=== PATIENT | male | born 1990 | race Caucasian/White ===

== ENCOUNTER 2021-01-19 20:51 | Inpatient (IN) | payer OTHER ==
[~2021-01-19] VITALS: Ht 172 cm; Wt 112.0 kg
[2021-01-19] MEDS ORDERED: LACTATED RINGERS 1,000 ML IV STA (21:39)
[2021-01-19 21:45] LABS: BASOPHILS % (AUTO) 0 % (0-10); EOSINOPHILS % (AUTO) 0 % (0-10); HEMATOCRIT 42 % (40-54); LYMPHOCYTES # (AUTO) 1.4 10^3/uL (1.0-4.0); LYMPHOCYTES % (AUTO) 19 % (12-44); MEAN CORPUSCULAR HEMOGLOBIN 29 pg (25-34); MEAN CORPUSCULAR HGB CONC 33 g/dL (32-36); MEAN CORPUSCULAR VOLUME 88 fL (80-99); MEAN PLATELET VOLUME 9.4 fL (9.0-12.2); MONOCYTES # (AUTO) 0.7 10^3/uL (0.0-1.0); MONOCYTES % (AUTO) 9 % (0-12); NEUTROPHILS # (AUTO) 5.4 10^3/uL (1.8-7.8); NEUTROPHILS % (AUTO) 72 % (42-75); PLATELET COUNT 269 10^3/uL (130-400); WHITE BLOOD COUNT 7.5 10^3/uL (4.3-11.0)
[2021-01-19 21:56] LABS: ALBUMIN 4.3 GM/DL (3.2-4.5); POTASSIUM 3.9 MMOL/L (3.6-5.0)
[2021-01-19 21:57] LABS: CALCIUM 8.7 MG/DL (8.5-10.1)
[2021-01-19 21:58] LABS: TOTAL PROTEIN 7.9 GM/DL (6.4-8.2)
[2021-01-19 22:00] LABS: BILIRUBIN,TOTAL 0.4 MG/DL (0.1-1.0); FIBRIN DEGRADATION PRODUCTS 0.44 UG/ML (0.00-0.49); INR 0.9 (0.8-1.4); PROTHROMBIN TIME PATIENT 12.6 SEC (12.2-14.7)
[2021-01-19 22:02] LABS: CREATININE SERUM 0.97 MG/DL (0.60-1.30)
--- NOTE | 2021-01-19 23:16 | ED General ---
General Chief Complaint: Cough/Cold/Flu Symptoms Stated Complaint: COUGH, SOB, FEVER Nursing Triage Note: Pt reports cough, SOA starting on 01/08. Pt had known COVID exposure at work. Pt reports worsening symptoms. Pt reports difficulty performing daiy tasks, states O2 drops into the 60s when up and around. Source of Information: Patient Exam Limitations: No Limitations History of Present Illness Date Seen by Provider: Jan 19, 2021 Time Seen by Provider: 21:29 Initial Comments Here with report of onset of symptoms on 01/08/2021. Covid positive this evening. Has had fever, chills, body aches and now with increasing shortness of breath. O2 saturations apparently dropped into the 60s when up and around. Arrives with O2 sat at 90% while resting. Denies nausea or vomiting but has had some diarrhea. Otherwise healthy. Did chew tobacco until the current illness but has stopped that now. Follows with Dr. Malcolm. She did see him and initiate albuterol and did give a dose of steroid. Timing/Duration: Getting Worse, Other (11 days) Severity: Moderate Associated Systoms: Cough, Fever/Chills, Loss of Appetite, Shortness of Air, We akness Allergies and Home Medications Allergies Coded Allergies: No Known Drug Allergies (Unverified , 01/19/21) Patient Home Medication List Home Medication List Reviewed: Yes Review of Systems Review of Systems Constitutional: see HPI EENTM: nose congestion; No throat pain Respiratory: cough, short of breath, wheezing Cardiovascular: no symptoms reported Gastrointestinal: see HPI; No nausea, No vomiting Genitourinary: no symptoms reported Musculoskeletal: see HPI All Other Systems Reviewed Negative Unless Noted: Yes Past Znxosyf-Bosagi-Wwqqzi Hx Patient Social History Tobacco Use?: No Use of E-Cig and/or Vaping dev: No Substance use?: No Alcohol Use?: Yes Alcohol Frequency: Once in a while Past Medical History Surgery/Hospitalization HX: NO PMH Surgeries: No Respiratory: No Cardiac: No Neurological: No Genitourinary: No Gastrointestinal: No Musculoskeletal: No Family Medical History Reviewed Nursing Family Hx Physical Exam-Suspected Sepsis Physical Exam Vital Signs Vital Signs - First Documented 01/19/21 21:14 Temp 37.8 Pulse 111 Resp 22 B/P (MAP) 133/86 (102) Pulse Ox 91 O2 Delivery Room Air Capillary Refill : Less Than 3 Seconds Blood Pressure Mean: 102 Height, Weight, BMI Height: '" Weight: lbs. oz. kg; 37.00 BMI Method: General Appearance: No Apparent Distress, WD/WN HEENT: PERRL/EOMI, Pharynx Normal Neck: Non Tender, Supple Respiratory: Crackles (Bilateral bases), Wheezing (Scattered with coarse cough) Cardiovascular: No Murmur, Tachycardia Gastrointestinal: Non Tender, Soft Back: Normal Inspection, No CVA Tenderness, No Vertebral Tenderness Extremity: Normal Range of Motion, Non Tender Neurologic/Psychiatric: Alert, Oriented x3 Skin: normal color, warm/dry Focused Exam Lactate Level 01/19/21 21:32: Lactic Acid Level 1.68 Lactic Acid Level Laboratory Tests Test 01/19/21 21:32 Lactic Acid Level 1.68 MMOL/L (0.50-2.00) Progress/Results/Core Measures Suspected Sepsis SIRS Temperature: Pulse: 111 Respiratory Rate: 22 Laboratory Tests 01/19/21 21:32: White Blood Count 7.5 Blood Pressure 133 /86 Mean: 102 01/19/21 21:32: Lactic Acid Level 1.68 Laboratory Tests 01/19/21 21:32: Creatinine 0.97, INR Comment 0.9, Platelet Count 269, Total Bilirubin 0.4 Results/Orders Lab Results Laboratory Tests Test 01/19/21 21:30 01/19/21 21:32 Range/Units SARS-CoV-2 RNA (RT-PCR) Detected H Not Detecte White Blood Count 7.5 4.3-11.0 10^3/uL Red Blood Count 4.78 4.30-5.52 10^6/uL Hemoglobin 14.0 13.3-17.7 g/dL Hematocrit 42 40-54 % Mean Corpuscular Volume 88 80-99 fL Mean Corpuscular Hemoglobin 29 25-34 pg Mean Corpuscular Hemoglobin Concent 33 32-36 g/dL Red Cell Distribution Width 13.0 10.0-14.5 % Platelet Count 269 130-400 10^3/uL Mean Platelet Volume 9.4 9.0-12.2 fL Immature Granulocyte % (Auto) 1 % Neutrophils (%) (Auto) 72 42-75 % Lymphocytes (%) (Auto) 19 12-44 % Monocytes (%) (Auto) 9 0-12 % Eosinophils (%) (Auto) 0 0-10 % Basophils (%) (Auto) 0 0-10 % Neutrophils # (Auto) 5.4 1.8-7.8 10^3/uL Lymphocytes # (Auto) 1.4 1.0-4.0 10^3/uL Monocytes # (Auto) 0.7 0.0-1.0 10^3/uL Eosinophils # (Auto) 0.0 0.0-0.3 10^3/uL Basophils # (Auto) 0.0 0.0-0.1 10^3/uL Immature Granulocyte # (Auto) 0.0 0.0-0.1 10^3/uL Prothrombin Time 12.6 12.2-14.7 SEC INR Comment 0.9 0.8-1.4 Activated Partial Thromboplast Time 30 24-35 SEC D-Dimer 0.44 0.00-0.49 UG/ML Sodium Level 140 135-145 MMOL/L Potassium Level 3.9 3.6-5.0 MMOL/L Chloride Level 101 98-107 MMOL/L Carbon Dioxide Level 24 21-32 MMOL/L Anion Gap 15 H 5-14 MMOL/L Blood Urea Nitrogen 13 7-18 MG/DL Creatinine 0.97 0.60-1.30 MG/DL Estimat Glomerular Filtration Rate 91 BUN/Creatinine Ratio 13 Glucose Level 110 H 70-105 MG/DL Lactic Acid Level 1.68 0.50-2.00 MMOL/L Calcium Level 8.7 8.5-10.1 MG/DL Corrected Calcium 8.5 8.5-10.1 MG/DL Total Bilirubin 0.4 0.1-1.0 MG/DL Aspartate Amino Transf (AST/SGOT) 45 H 5-34 U/L Alanine Aminotransferase (ALT/SGPT) 48 0-55 U/L Alkaline Phosphatase 66 40-136 U/L C-Reactive Protein High Sensitivity 2.57 H 0.00-0.50 MG/DL Total Protein 7.9 6.4-8.2 GM/DL Albumin 4.3 3.2-4.5 GM/DL Procalcitonin 0.04 <0.10 NG/ML My Orders Orders - PARISH BROWN MD Cbc With Automated Diff (01/19/21 21:29) Comprehensive Metabolic Panel (01/19/21 21:29) Blood Culture (01/19/21 21:29) Sputum Culture (01/19/21 21:29) Urinalysis (01/19/21 21:29) Urine Culture (01/19/21:29) Protime With Inr (01/19/21:) Partial Thromboplastin Time (01/19/21 21:29) Chest 1 View, Ap/Pa Only (01/19/21 21:29) Ed Iv/Invasive Line Start (01/19/21 21:29) Vital Signs Adult Sepsis Patie Q15M (01/19/21 21:29) O2 (01/19/21 21:29) Remove Rings In Anticipation O (01/19/21 21:) Lactic Acid Analyzer (01/19/21:) Fibrin Degradation Products (01/19/21:) Procalcitonin (Pct) (01/19/21:) Hs C Reactive Protein (01/19/21:) Lactated Ringers (Lr 1000 Ml Iv Solution (01/19/21 21:39) Dexamethasone Injection (Decadron Inje (01/19/21 21:45) Medications Given in ED Current Medications Medications Dose Ordered Sig/Ambrosio Route Start Time Stop Time Status Last Admin Dose Admin Dexamethasone Sodium Phosphate 6 mg ONCE ONCE IV 01/19/21 21:45 01/19/21 21:46 DC 01/19/21 21:43 6 MG Vital Signs/I&O 01/19/21 21:14 Temp 37.8 Pulse 111 Resp 22 B/P (MAP) 133/86 (102) Pulse Ox 91 O2 Delivery Room Air Capillary Refill : Less Than 3 Seconds Blood Pressure Mean: 102 Progress Note : Progress Note Seen and evaluated. IV, labs, blood cultures and lactic acid ordered. COVID-19 test ordered and is positive. LR 1 L bolus ordered. Decadron 6 mg IV due to diarrhea. Patient placed on O2 at 2 L to keep sats above 92% and currently is 93%. We did have him do 4 puffs of his inhaler via spacer which did not significantly improve his saturations but wheezing diminished. Monitor patient. 2233: I did discuss the case with Dr. Lane. Given his x-ray findings and requirement for O2, patient meets criteria for admission. We will initiate convalescent plasma which I will order. Findings and concerns discussed with patient and his (via telephone) and they agree to admission, inpatient status. Dr. Lane agrees to admission, inpatient status Diagnostic Imaging Diagonstic Imaging: Xray Plain Films/CT/US/NM/MRI: chest Comments Bilateral lateral and basilar infiltrates consistent with COVID-19 pneumonia Departure Communication (Admissions) Time/Spoke to Admitting Phy: 22:33 Impression Primary Impression: Pneumonia due to COVID-19 virus Additional Impression: Hypoxia Disposition: ADMITTED INPATIENT Condition: Stable Admissions Decision to Admit Reason: Admit from ER (General) Decision to Admit/Date: Jan 19, 2021 Time/Decision to Admit Time: 22:33 PARISH BROWN MD Jan 19, 2021 23:16
[2021-01-20] VITALS (7 sets, daily range): BP systolic 115–134; BP diastolic 70–79
[2021-01-20] MEDS ORDERED: guaiFENesin SYRUP 100 MG/5 ML 10 ML (ROBITUSSIN SF) PO SCH (00:15)
[2021-01-20] MEDS ORDERED: ONDANSETRON 4 MG/5 ML ORAL SOLN (ZOFRAN) 5 ML PO PRN (00:15)
[2021-01-20] MEDS ORDERED: ONDANSETRON 4 MG/2 ML (SDV) Z0FRAN IV PRN (00:15)
[2021-01-20] MEDS ORDERED: ACETAMINOPHEN 325 MG TABLET PO PRN (00:15)
[2021-01-20] MEDS ORDERED: LACTATED RINGERS 1,000 ML IV ONE (00:21)
[2021-01-20] MEDS ORDERED: guaiFENesin/DM (ROBITUSSIN DM) 10 ML UDC ONE (00:27)
[2021-01-20] MEDS: LACTATED RINGERS 1,000 ML IV SCH ×2 (00:27→20:54)
[2021-01-20] MEDS ORDERED: RT-ALBUTEROL HFA 8.5 GM INHALER IH PRN (00:30)
[2021-01-20] MEDS: ENOXAPARIN 40 MG/0.4 ML (LOVENOX) SYR SC SCH ×2 (01:55→20:54)
[2021-01-20] MEDS: RT-ALBUTEROL HFA 8.5 GM INHALER IH SCH ×4 (02:14→20:54)
[2021-01-20] MEDS ORDERED: guaiFENesin SYRUP 100 MG/5 ML 10 ML (ROBITUSSIN SF) PO PRN (04:15)
--- NOTE | 2021-01-20 06:30 | Diagnostic Imaging Report ---
INDICATION: Sepsis, Covid exposure FINDINGS: Frontal view of the chest demonstrates the heart size to be upper normal. Bilateral pulmonary infiltrates are present. There are no pleural effusions. The osseous structures appear unremarkable. IMPRESSION: Bilateral pulmonary infiltrates, left greater than right, are present. Heart size is borderline enlarged. Findings agree with Emergency Room report. Dictated by: Dictated on workstation # [id number]
[2021-01-20] MEDS ORDERED: CATHETER FLUSH 10 ML SYR IV PRN (07:30)
[2021-01-20] MEDS: dexAMETHasone 6 MG TAB (DECADRON) PO SCH (08:04)
[2021-01-20] MEDS ORDERED: DIPH25CA79 PO (13:51)
[2021-01-20] MEDS ORDERED: RT-ALBUINH INH (13:51)
[2021-01-20] MEDS ORDERED: ACET-2267 PO (13:51)
[2021-01-20] MEDS ORDERED: DEXT20TA8 PO (13:51)
[2021-01-20] MEDS ORDERED: MELA5TAB14 PO (13:51)
[2021-01-20] MEDS ORDERED: IBUP-2473 PO (13:51)
[2021-01-20] MEDS ORDERED: ACETAMINOPHEN 500 MG TAB (TYLENOL) PO PRN (14:45)
[2021-01-20] MEDS ORDERED: IBUPROFEN TABLET 200 MG TAB PO PRN (14:45)
--- NOTE | 2021-01-20 14:48 | History & Physical-Hospitalist ---
History of Present Illness HPI/Chief Complaint Pt is a 30yoCM who presented to the ER due to hypoxia. Per EMS report his sats dropped to the 60s. Source: patient Date Seen 01/20/21 Time Seen by a Provider: 14:[address] MD PCP No,Local Physician Referring Physician Date of Admission Jan 19, 2021 at 23:09 Home Medications & Allergies Home Medications Reviewed patient Home Medication Reconciliation performed by pharmacy medication reconciliations infectious waste technician and/or nursing. Patients Allergies have been reviewed. Allergies Allergies Coded Allergies No Known Drug Allergies (Unverified01/19/21) Past Rymfyae-Wqwngi-Mixtqr Hx Patient Social History Tobacco Use?: Yes Tobacco type used: Cigars Smoking Status: Light Tobacco Smoker Smokeless Tobacco Frequency: Never a User Use of E-Cig and/or Vaping dev: No Substance use?: No Alcohol Use?: Yes Alcohol Frequency: Once in a while Pt feels they are or have been: No Current Status Advance Directives: No Communicates: Verbally Primary Language: Chinese Preferred Spoken Language: Chinese Is interpretation needed?: No Sensory deficits: Vision impairment Implanted or Applied Medical D: None Family Medical History Reviewed Nursing Family Hx Physical Exam Physical Exam Vital Signs Vital Signs - First Documented 01/19/21 01/19/21 01/20/21 21:14 21:20 02:15 Temp 37.8 Pulse 111 Resp 22 B/P (MAP) 133/86 (102) Pulse Ox 91 O2 Delivery Room Air O2 Flow Rate 2.00 FiO2 96 Capillary Refill : Less Than 3 Seconds Height, Weight, BMI Height: '" Weight: lbs. oz. kg; 37.85 BMI Method: Results Results/Procedures Labs Laboratory Tests 01/19/21 21:32 Patient resulted labs reviewed. Assessment/Plan Admission Diagnosis Acute hypoxic respiratory failure due to COVID19 Admission Status: Inpatient Order (span 2 midnights) Reason for Inpatient Admission: see below Assessment and Plan Acute hypoxic respiratory failure due to COVID19 Continue on Decadron Wean oxygen to keep sats >90 Outside of the window for remdesivir Convalescent plasma ordered, discuss issues with national backorder due to nationwide surge Supportive care DVT ppx: Lovenox Diagnosis/Problems Diagnosis/Problems (1) Acute respiratory failure (2) Obesity (3) COVID-[address] MD Jan 20, 2021 14:48
--- NOTE | 2021-01-20 15:15 | Pulmonary Consultation ---
History of Present Illness History of Present Illness Date Seen by Provider: Jan 20, 2021 Time Seen by Provider: 15:11 Date of Admission Reason for Visit: CRUM, COVID PNA History of Present Illness 30 yo admitted with COVID PNA, started on January 08, did ok, until 01/16, developed SOB, CRUM, Feeling a little better at rest, still CRUM Now on 3 lpm with SpO2 95% Has mucoid cough, no blood, has lost sense of smell and taste, came back On IV Decadron, not on remdesivir-out of window PMH no DM, no HTN, no HLD, no OHD, no SOL Allergies and Home Medications Allergies Coded Allergies: No Known Drug Allergies (Unverified , 01/19/21) Home Medications Acetaminophen 500 Mg Tablet, 1,000 MG PO Q8H PRN for PAIN-MILD (1-4), (Reported) Albuterol Sulfate 1 Puff Puff, 2 PUFF INH Q4H PRN for SHORTNESS OF BREATH, (Reported) Dextroamphetamine/Amphetamine 20 Mg Tablet, 20 MG PO 0700,1200, (Reported) Diphenhydramine HCl 25 Mg Capsule, 25-50 MG PO Q8H PRN for ALLERGY SYMPTOMS, (Reported) Ibuprofen 200 Mg Tablet, 400-600 MG PO Q8H PRN for PAIN-MILD (1-4), (Reported) Melatonin 5 Mg Tablet, 5 MG PO HS PRN for SLEEP, (Reported) Past Medical/Social/Family Hx Patient Social History Tobacco Use?: Yes Tobacco type used: Cigars Smoking Status: Light Tobacco Smoker Smokeless Tobacco Frequency: Never a User Use of E-Cig and/or Vaping dev: No Substance use?: No Alcohol Use?: Yes Alcohol Frequency: Once in a while Pt stated abuse/neglect: No Immunizations Up To Date Influenza Vaccine Up-to-Date: No; Not Current Current Status Advance Directives: No Communicates: Verbally Primary Language: Burundian Preferred Spoken Language: Burundian Is interpretation needed?: No Sensory deficits: Vision impairment Implanted or Applied Medical D: None Review of Systems Constitutional: weakness Respiratory: no symptoms reported, cough, dyspnea on exertion Sepsis Event Evaluation Height, Weight, BMI Height: '" Weight: lbs. oz. kg; 37.85 BMI Method: Exam Exam Patient acknowledged, consented, and participated in this virtual visit which was conducted using real time audio/video Vital Signs Date Time Temp Pulse Resp B/P (MAP) Pulse Ox O2 Delivery O2 Flow Rate FiO2 01/20/21 14:29 Nasal Cannula 3.00 01/20/21 12:00 36.4 86 22 125/73 (90) 94 Nasal Cannula 3.00 01/20/21 08:50 Nasal Cannula 3.00 01/20/21 08:00 36.2 88 20 130/78 (95) 94 Nasal Cannula 3.00 01/20/21 07:59 Nasal Cannula 3.00 01/20/21 04:46 36.8 86 16 121/76 (91) 94 Nasal Cannula 3.00 01/20/21 02:15 Nasal Cannula 3.00 96 01/20/21 00:27 37.8 110 96 01/20/21 00:10 37.3 100 22 115/70 (85) 93 Nasal Cannula 2.00 01/20/21 00:00 93 Nasal Cannula 2.00 01/19/21 23:55 37.8 110 22 128/79 (102) 96 Nasal Cannula 2.00 01/19/21 21:20 91 Nasal Cannula 2.00 01/19/21 21:14 37.8 111 22 133/86 (102) 91 Room Air I & O 01/20/21 07:00 Intake Total 1300 ml Output Total 350 ml Balance 950 ml Height & Weight Height: '" Weight: lbs. oz. kg; 37.85 BMI Method: General Appearance: No Apparent Distress, WD/WN HEENT: PERRL/EOMI, Pharynx Normal Neck: Non Tender, Supple Respiratory: Crackles (Bilateral bases), Decreased Breath Sounds, Wheezing (Scattered with coarse cough) Cardiovascular: Regular Rate, Rhythm, No Murmur, Tachycardia Capillary Refill: Less Than 3 Seconds Gastrointestinal: normal bowel sounds, non tender, soft Extremity: Normal Range of Motion, Non Tender, No Pedal Edema Neurologic/Psychiatric: Alert, Oriented x3 Results Lab Laboratory Tests 01/19/21 21:32 Assessment/Plan Assessment/Plan Has bilateral infiltrate which combined with his obesity is dropping his SpO2, keep on same meds, If large drops at night would consider SOL Will follow D Dimer ok Time spent with patient (mins): 20 FRANCE HOLBROOK MD Jan 20, 2021 15:15
[2021-01-20] MEDS: MELATONIN 3 MG TABLET PO PRN (20:54)
[2021-01-21 00:21] VITALS: BP 122/80
[2021-01-21] MEDS: RT-ALBUTEROL HFA 8.5 GM INHALER IH SCH ×4 (01:55→21:22)
[2021-01-21 04:06] VITALS: BP 125/75
[2021-01-21 05:44] LABS: BASOPHILS % (AUTO) 0 % (0-10); EOSINOPHILS % (AUTO) 0 % (0-10); HEMATOCRIT 40 % (40-54); HEMOGLOBIN 13.4 g/dL (13.3-17.7); LYMPHOCYTES # (AUTO) 1.4 10^3/uL (1.0-4.0); LYMPHOCYTES % (AUTO) 15 % (12-44); MEAN CORPUSCULAR HEMOGLOBIN 29 pg (25-34); MEAN CORPUSCULAR HGB CONC 34 g/dL (32-36); MEAN CORPUSCULAR VOLUME 88 fL (80-99); MONOCYTES % (AUTO) 11 % (0-12); NEUTROPHILS # (AUTO) 6.6 10^3/uL (1.8-7.8); NEUTROPHILS % (AUTO) 73 % (42-75); PLATELET COUNT 314 10^3/uL (130-400)
[2021-01-21 05:55] LABS: ALBUMIN 3.9 GM/DL (3.2-4.5); POTASSIUM 4.1 MMOL/L (3.6-5.0)
[2021-01-21 05:56] LABS: CALCIUM 8.6 MG/DL (8.5-10.1)
[2021-01-21 05:57] LABS: TOTAL PROTEIN 7.2 GM/DL (6.4-8.2)
[2021-01-21 05:59] LABS: BILIRUBIN,TOTAL 0.4 MG/DL (0.1-1.0)
[2021-01-21 06:01] LABS: CREATININE SERUM 0.76 MG/DL (0.60-1.30)
[2021-01-21] MEDS ORDERED: NON-FORMULARY MEDICATION 1 EA EA (Dextroamphetamine/Amphetamine (Amphetamine Salts 20 mg T PO SCH (07:00)
[2021-01-21 07:48] VITALS: BP 116/77
[2021-01-21] MEDS: dexAMETHasone 6 MG TAB (DECADRON) PO SCH (08:54)
[2021-01-21 11:57] VITALS: BP 124/80
--- NOTE | 2021-01-21 12:42 | Pulmonary Progress Note ---
Subjective Date Seen by a Provider: Jan 21, 2021 Time Seen by a Provider: 12:39 Subjective/Events-last exam events over night: sob improved; occ cough; sob worse when walking Sepsis Event Evaluation Height, Weight, BMI Height: '" Weight: lbs. oz. kg; 37.85 BMI Method: Focused Exam Lactate Level 01/19/21 21:32: Lactic Acid Level 1.68 Exam Exam Patient acknowledged, consented, and participated in this virtual visit which was conducted using real time audio/video Vital Signs Date Time Temp Pulse Resp B/P (MAP) Pulse Ox O2 Delivery O2 Flow Rate FiO2 01/21/21 11:57 36.5 78 28 124/80 (95) 93 Nasal Cannula 3.00 01/21/21 08:41 Nasal Cannula 2.00 94 01/21/21 08:00 Nasal Cannula 2.00 01/21/21 07:48 36.2 80 24 116/77 (90) 95 Nasal Cannula 3.00 01/21/21 04:06 36.4 78 20 125/75 (92) 96 Nasal Cannula 3.00 01/21/21 01:55 Nasal Cannula 3.00 94 01/21/21 00:21 36.0 85 20 122/80 (94) 96 Nasal Cannula 3.00 01/20/21 20:45 Nasal Cannula 3.00 01/20/21 19:35 37.0 92 20 128/79 (95) 94 Nasal Cannula 3.00 01/20/21 16:07 36.3 93 20 134/72 (92) 93 Nasal Cannula 3.00 01/20/21 14:29 Nasal Cannula 3.00 I & O 01/21/21 07:00 Intake Total 2 ml Output Total 300 ml Balance 1722 ml Height & Weight Height: '" Weight: lbs. oz. kg; 37.85 BMI Method: General Appearance: No Apparent Distress, WD/WN HEENT: PERRL/EOMI, Pharynx Normal Neck: Non Tender, Supple Respiratory: Crackles (Bilateral bases), Decreased Breath Sounds, Wheezing (Scattered with coarse cough) Cardiovascular: Regular Rate, Rhythm, No Murmur, Tachycardia Capillary Refill: Less Than 3 Seconds Gastrointestinal: normal bowel sounds, non tender, soft Extremity: Normal Range of Motion, Non Tender, No Pedal Edema Neurologic/Psychiatric: Alert, Oriented x3 Results Lab Laboratory Tests 01/19/21 21:32 01/21/21 05:38 Assessment/Plan Assessment/Plan Acute hypoxmic resp failure covid pna lovenox o2 nasal canula 2l repeat cxray continue to oberve SOL may need bipap psg outpatient SONIA GAUTHIER MD Jan 21, 2021 12:42
--- NOTE | 2021-01-21 13:25 | Progress Note - Hospitalist ---
Subjective HPI/CC On Admission Date Seen by Provider: Jan 21, 2021 Time Seen by Provider: 11:15 Pt is a 30yoCM who presented to the ER due to hypoxia. Per EMS report his sats dropped to the 60s. Subjective/Events-last exam Pt reports doing ok but is surprised he isn't feeling better. We discussed the potential for long recovery and that could be weeks or months. He seemed very upset by this possibility. Reminded him that we will take it one day at a time and to give himself time with his recovery. Focused Exam Lactate Level 01/19/21 21:32: Lactic Acid Level 1.68 Objective Exam Vital Signs Vital Signs Date Time Temp Pulse Resp B/P (MAP) Pulse Ox O2 Delivery O2 Flow Rate FiO2 01/21/21 11:57 36.5 78 28 124/80 (95) 93 Nasal Cannula 3.00 01/21/21 08:41 94 Capillary Refill : Less Than 3 Seconds General Appearance: No Apparent Distress, Obese Respiratory: No Accessory Muscle Use, Crackles (in bases), Decreased Breath Sounds Cardiovascular: Regular Rate, Rhythm, No Murmur Gastrointestinal: Normal Bowel Sounds, Non Tender, Soft Neurologic/Psychiatric: Alert, Oriented x3 Results/Procedures Lab Laboratory Tests 01/21/21 05:38 Patient resulted labs reviewed. Assessment/Plan Assessment and Plan Assess & Plan/Chief Complaint Acute hypoxic respiratory failure due to COVID19 Continue on Decadron Wean oxygen to keep sats >90 Outside of the window for remdesivir Convalescent plasma ordered, discuss issues with national backorder due to nationwide surge- still awaiting arrival Supportive care Pulm consulted, appreciate recs DVT ppx: Lovenox Diagnosis/Problems Diagnosis/Problems (1) Acute respiratory failure (2) Obesity (3) COVID-19 JUSTICE MURGUIA MD Jan 21, 2021 13:25
[2021-01-21 15:48] VITALS: BP 138/88
[2021-01-21] MEDS: LACTATED RINGERS 1,000 ML IV SCH (16:53)
[2021-01-21 19:33] VITALS: BP 133/87
[2021-01-21] MEDS: MELATONIN 3 MG TABLET PO PRN (20:10)
[2021-01-21] MEDS: ENOXAPARIN 40 MG/0.4 ML (LOVENOX) SYR SC SCH (20:10)
[2021-01-22 00:13] VITALS: BP 109/72
[2021-01-22] MEDS: RT-ALBUTEROL HFA 8.5 GM INHALER IH SCH ×3 (01:58→14:55)
--- NOTE | 2021-01-22 07:37 | Diagnostic Imaging Report ---
INDICATION: COVID pneumonia COMPARISON: 01/19/2021 FINDINGS: Body habitus limits radiographic sensitivity. There are likely a vague infiltrates in the periphery of the left lung not substantially changed. Soft tissue ossifications from old left AC and CC joint separation's chronic. No acute chest wall pathology. IMPRESSION: Limited by body habitus, suspicion for some patchy left lung infiltrates showing no obvious interval change. Report was faxed to [facility] by maci at 7:40AM. Dictated by: Dictated on workstation # [id number]
[2021-01-22 07:52] VITALS: BP 112/71
[2021-01-22] MEDS: dexAMETHasone 6 MG TAB (DECADRON) PO SCH (08:44)
--- NOTE | 2021-01-22 09:56 | Tele-ICU Progress Note ---
Subjective Date Seen by a Provider: Jan 22, 2021 Time Seen by a Provider: 09:30 Subjective/Events-last exam Patient acknowledged, consented, and participated in this virtual visit which was conducted using real time audio/video. Thank you for asking us to see this patient for respiratory insufficiency and distress due to Covid pna. HPC: Recent events: Feels much better overnight.Dyspnea w exertion such as going to bathroom. PMH: none per pt. SH: smoking history: none. FH: Non-contributory ROS: feels better. PE: VSS O2 sat 95% on 2 LPM NC. HEENT: No obvious masses, adenopathy or JVD. Chest: clear to auscultation. CV: RRR S1 S2 No murmur or added sounds. Abd: Non-tender. Bowel sounds . : Unremarkable. Blanchard . POLISHER DIAL/psychiatric: Alert and oriented, grossly intact. No obvious focal findings. Extremities: No edema. Capillary refill < 3 seconds. Skin: unremarkable. Results: Elevated glucose. A/P: Respiratory insufficiency/distress: subjectively improved but Sats better on 2 LPM. Available chart/ vitals / labs / Images reviewed. Video assessment done using teleICU camera. Respiratory: Continue present management with NC. Cont alb., dex., lovenox. Monitor for increasing oxygenation needs and/or need for ICU transfer. Asked RN to reach out to eICU if any questions or concerns later. Time spent with patient/coordination of care with other health professionals (mins): 15 Sepsis Event Evaluation Sepsis Stage: Ruled Out Height, Weight, BMI Height: '" Weight: lbs. oz. kg; 37.85 BMI Method: Focused Exam Sepsis Stage: Ruled Out Lactate Level 01/19/21 21:32: Lactic Acid Level 1.68 Exam Exam Patient acknowledged, consented, and participated in this virtual visit which was conducted using real time audio/video Vital Signs Date Time Temp Pulse Resp B/P (MAP) Pulse Ox O2 Delivery O2 Flow Rate FiO2 01/22/21 07:52 36.7 73 20 112/71 (85) 95 Nasal Cannula 2.00 01/22/21 07:05 Nasal Cannula 2.00 94 01/22/21 01:59 Nasal Cannula 2.00 94 01/22/21 00:13 36.3 67 20 109/72 (84) 96 Nasal Cannula 2.00 01/21/21 21:23 Nasal Cannula 2.00 93 01/21/21 20:51 Nasal Cannula 2.00 01/21/21 19:33 36.0 81 20 133/87 (102) 95 Nasal Cannula 2.00 01/21/21 15:48 36.7 78 22 138/88 (105) 93 Nasal Cannula 2.00 01/21/21 15:45 Nasal Cannula 2.00 92 01/21/21 11:57 36.5 78 28 124/80 (95) 93 Nasal Cannula 3.00 I & O 01/22/21 07:00 Intake Total 2402 ml Balance 2402 ml Height & Weight Height: '" Weight: lbs. oz. kg; 37.85 BMI Method: General Appearance: No Apparent Distress, WD/WN HEENT: PERRL/EOMI, Pharynx Normal Neck: Non Tender, Supple Respiratory: Crackles (Bilateral bases), Decreased Breath Sounds, Wheezing (Scattered with coarse cough) Cardiovascular: Regular Rate, Rhythm, No Murmur, Tachycardia Capillary Refill: Less Than 3 Seconds Gastrointestinal: normal bowel sounds, non tender, soft Extremity: Normal Range of Motion, Non Tender, No Pedal Edema Neurologic/Psychiatric: Alert, Oriented x3 Results Lab Laboratory Tests 01/21/21 05:38 Assessment/Plan Assessment/Plan See free text Time spent on discussion(mins): 0 Diagnosis/Problems Diagnosis/Problems (1) Pneumonia due to COVID-19 virus Status: Acute (2) Hypoxia Status: Acute (3) Acute respiratory failure (4) COVID-19 NEDA LEONARDO MD Jan 22, 2021 09:56
--- NOTE | 2021-01-22 10:53 | Discharge Summary ---
Diagnosis/Chief Complaint Date of Admission Jan 19, 2021 at 23:09 Date of Discharge Admission Diagnosis Acute hypoxic respiratory failure due to COVID19 Primary Care No,Local Physician Discharge Diagnosis (1) Pneumonia due to COVID-19 virus Status: Acute (2) Hypoxia Status: Acute (3) Acute respiratory failure (4) COVID-19 Discharge Summary Procedures/Consulations TelePulm Discharge Physical Exam Allergies: Coded Allergies: No Known Drug Allergies (Unverified , 01/19/21) Vitals & I&Os Vital Signs Date Time Temp Pulse Resp B/P (MAP) Pulse Ox O2 Delivery O2 Flow Rate FiO2 01/22/21 18:16 35.5 78 20 123/68 90 Nasal Cannula 2.00 01/22/21 07:05 94 General Appearance: No Apparent Distress, WD/WN Respiratory: Lungs Clear, No Respiratory Distress Cardiovascular: Regular Rate, Rhythm, No Murmur Neurologic/Psychiatric: Alert, Oriented x3 Hospital Course Patient was admitted with acute hypoxic respiratory failure due to COVID-19. He was treated with Decadron and convalescent plasma, but was outside of the window for Remdesivir. He did well and was able to be titrated off of oxygen completely. He was still somewhat subjectively dyspneic and I offered another night of admission to monitor but he declined and insisted on DC home. He was discharged home in stable and improved condition to follow-up with his primary care provider. Labs (last 24 hrs) Microbiology 01/19/21 Blood Culture - Preliminary, Resulted No growth Patient resulted labs reviewed. Discussion & Recommendations Discharge Planning: >30 minutes discharge planning Discharge Home Medications: Active Scripts Active Reported Ibuprofen 200 Mg Tablet 400-600 Mg PO Q8H PRN Tylenol Extra Strength (Acetaminophen) 500 Mg Tablet 1,000 Mg PO Q8H PRN Benadryl (Diphenhydramine HCl) 25 Mg Capsule 25-50 Mg PO Q8H PRN Melatonin 5 Mg Tablet 5 Mg PO HS PRN Amphetamine Salts 20 mg Tablet (Dextroamphetamine/Amphetamine) 20 Mg Tablet 20 Mg PO 0700,1200 Ventolin Hfa (Albuterol Sulfate) 1 Puff Puff 2 Puff INH Q4H PRN Instructions to patient/family Please see electronic discharge instructions given to patient. JUSTICE MURGUIA MD Jan 22, 2021 10:53
[2021-01-22] MEDS ORDERED: NS IV 500 ML 500 ML IV ONE (13:30)
[2021-01-22] MEDS ORDERED: NS IV 500 ML 500 ML ONE (13:41)
[2021-01-22 13:51] VITALS: BP 121/72
[2021-01-22 14:10] VITALS: BP 131/65
[2021-01-22 14:43] VITALS: BP 123/68
[2021-01-22] MEDS ORDERED: diphenhydrAMINE 25 MG TAB (BENADRYL) PO ONE ×2 (14:52→15:00)
--- NOTE | 2021-01-22 16:16 | Discharge Inst-Simple/Standard ---
Discharge Inst-Standard Patient Instructions/Follow Up Plan of Care/Instructions/FU: Please continue to take your medications as written. Please follow up with your primary care doctor to follow up this hospital stay. Activity as Tolerated: Yes Discharge Diet: No Restrictions Return to The Hospital For: Chest pain, shortness of breath, fever, weakness, confusion, if you feel you are getting worse. JUSTICE MURGUIA MD Jan 22, 2021 16:16
[2021-01-22 18:16] VITALS: BP 123/68
== END 2021-01-22 18:25 | disposition home or self-care (01) | DRG 177 ==
LOC: ER 20:56 → 4TH 23:09
PROVIDERS: ADMIT Family Medicine; ATTEND Family Medicine
PROC: XW13325 Transfusion of Convalescent Plasma (Nonautologous) into Peripheral Vein, Percutaneous Approach, New Technology Group 5 (ICD-10-PCS; principal; 2021-01-19)
PROC: 8E0ZXY6 Isolation (ICD-10-PCS; 2021-01-20)
DX: U07.1 COVID-19 (principal); J12.82 Pneumonia due to coronavirus disease 2019; J96.01 Acute respiratory failure with hypoxia; E66.9 Obesity, unspecified; Z68.37 Body mass index [BMI] 37.0-37.9, adult; G47.33 Obstructive sleep apnea (adult) (pediatric); F17.290 Nicotine dependence, other tobacco product, uncomplicated; H54.7 Unspecified visual loss
CPT/HCPCS: 36415; 71045; 80053; 83605; 84145; 85025; 85379; 85610; 85730; 86141; 86900; 86901; 87040; 87636; 94640; 94760; 96361; 96374